=== PATIENT | female | born 2000 | race African-American/Black ===

== ENCOUNTER 2019-04-28 09:13 | Emergency (ER) | payer OTHER ==
[~2019-04-28] VITALS: Ht 165.1 cm; Wt 73.2 kg
[2019-04-28 09:14] VITALS: BP 110/64
[2019-04-28] MEDS ORDERED: PENI500T PO (10:02)
== END 2019-04-28 10:07 | disposition home or self-care (01) ==
LOC: M ED 09:13
DX: J02.0 Streptococcal pharyngitis (principal)